=== PATIENT | male | born 1960 | race Two or more races ===

== ENCOUNTER 2020-01-08 12:37 | Emergency (ER) | payer OTHER ==
[2020-01-08 12:45] VITALS: BP 135/86; PULSE 69; TEMP 98.8; BMI 27.8
[2020-01-08] MEDS ORDERED: METHOCARBAMOL 500 MG TABLET PO ONE (12:46)
[2020-01-08] MEDS ORDERED: LIDOCAINE 5% TOPICAL PATCH TP ONE (12:46)
[2020-01-08] MEDS ORDERED: KETOROLAC TROMETHAMINE 30 MG/1 ML VIAL IM ONE (12:46)
--- NOTE | 2020-01-08 12:46 | PDOC ---
Rapid Medical Evaluation Chief Complaint: Back Pain Time Seen by Provider: 01/08/20 12:41 Medical Evaluation: Allergies Allergy/AdvReac Type Severity Reaction Status Date / Time No Known Allergies Allergy Verified 01/08/20 12:42 01/08/20 12:42 I have performed a brief in-person evaluation of this patient. The patient presents with a chief complaint of: 2 weeks left lower back pain radiating to left thigh. Denies any injury . pt was seen by orthopedics in [facility] for problem and prescribed naproxen but report has not been helping. Denies incontinence or saddle paresthesias Pertinent physical exam findings: A&o x 3 in mild distress. No clear TTP to back. report pain only with movement I have ordered the following: Toradol, lidoderm,robaxin The patient will proceed to the ED for further evaluation. Discharge Disposition - Diagnosis Lumbago of lumbar region with sciatica - Discharge Dispostion Condition at time of disposition: Stable - Referrals - Patient Instructions - Post Discharge Activity
[2020-01-08] MEDS ORDERED: KETOROLAC TROMETHAMINE 60 MG/2 ML VIAL IM ONE (13:14)
[2020-01-08] MEDS ORDERED: KETOROLAC TROMETHAMINE 60 MG/2 ML VIAL ONE (13:15)
--- NOTE | 2020-01-08 13:20 | PDOC ---
History of Present Illness - General Chief Complaint: Back Pain Stated Complaint: LOWER BACK/ HIP PAIN Time Seen by Provider: 01/08/20 12:41 - History of Present Illness Initial Comments: 01/08/20 13:15 59-year-old male with a past medical history of hypertension presents for evaluation of lower back pain with left posterior lateral leg radicular symptoms without systemic symptoms no loss of bowel bladder function or saddle pa resthesias Past History - Medical History Allergies/Adverse Reactions: Allergies Allergy/AdvReac Type Severity Reaction Status Date / Time No Known Allergies Allergy Verified 01/08/20 12:42 Home Medications: Ambulatory Orders Cyclobenzaprine HCl [Flexeril 10 mg] 10 mg PO HS PRN #10 tablet 01/08/20 Methylprednisolone [Medrol Dose Santi] 4 mg PO ASDIR #21 tablet 01/08/20 COPD: Yes HTN: Yes - Immunization History Immunization Up to Date: No - Psycho-Social/Smoking History Smoking History: Never smoked - Substance Abuse Hx (Audit-C & DAST Scrn) How often the patient has a drink containing alcohol: Never Score: In Men: 4 or > Positive; In Women: 3 or > Positive: 0 Screen Result (Pos requires Nsg. Audit-10AR): Negative In the last yr the pt used illegal drug/Rx for NonMed reason: No Score: Yes response is considered Positive: 0 Screen Result (Positive result requires Nsg. DAST-10): Negative Review of Systems - Review of Systems Constitutional: No: Fever : No: Incontinence Musculoskeletal: Yes: Back Pain *Physical Exam - Vital Signs Last Vital Signs Temp Pulse Resp BP Pulse Ox 98.8 F 69 20 135/86 100 01/08/20 12:42 01/08/20 12:42 01/08/20 12:42 01/08/20 12:42 01/08/20 12:42 - Physical Exam 01/08/20 13:16 Lumbar spine skin color temperature normal range of motion is slightly decreased. No midline tenderness. Moderate bilateral paralumbar musculature spasm and tenderness 5 out of 5 strength bilateral lower extremities without gross sensorimotor deficits thighs and calves are soft and nontender neurovascular intact Medical Decision Making - Medical Decision Making 01/08/20 13:16 One-time injection of Toradol in the emergency room for pain. Medrol Dosepak and Flexeril at home. Instructed patient on use of Tylenol in addition to Medrol Dosepak should he require additional analgesia. Follow-up with orthopedic spine at [facility] where the patient was seen in the past. Advised not to take any other anti-inflammatory medications. I have reviewed the pathophysiology with the patient. They are in agreement with the treatment plan all questions were answered to their satisfaction. Understanding for follow-up without fail was also conveyed to the patient. Again they are in agreement. Discharge - Discharge Information Problems reviewed: Yes Clinical Impression/Diagnosis: Lumbago of lumbar region with sciatica Condition: Stable - Admission No - Additional Discharge Information Prescriptions: Cyclobenzaprine HCl [Flexeril 10 mg] 10 mg PO HS PRN #10 tablet PRN Reason: Muscle Spasms Methylprednisolone [Medrol Dose Santi] 4 mg PO ASDIR #21 tablet - Follow up/Referral - Patient Discharge Instructions Additional Instructions: You were given a shot of a long-acting anti-inflammatory in the emergency room. No anti-inflammatories going forward until you are seen by the specialist. Please start the Medrol Dosepak tomorrow and take the medication as directed you may start the Flexeril this evening. It will help you sleep 1 tablet before bedtime it would also help with your muscle spasm. Return to the emergency room for worsening symptoms. And without fail follow-up with neurosurgery in 2 to 3 days for further evaluation and treatment options. - Post Discharge Activity
== END 2020-01-08 13:45 | disposition home or self-care (01) ==
LOC: JERFT 12:37
PROC: 3E0233Z Introduction of Anti-inflammatory into Muscle, Percutaneous Approach (ICD-10-PCS; principal; 2020-01-08)
DX: M54.41 Lumbago with sciatica, right side (principal)
CPT/HCPCS: 99284-25

== ENCOUNTER 2020-01-14 18:15 | Emergency (ER) | payer OTHER ==
--- NOTE | 2020-01-14 18:36 | PDOC ---
Rapid Medical Evaluation Time Seen by Provider: 01/14/20 18:33 Medical Evaluation: Allergies Allergy/AdvReac Type Severity Reaction Status Date / Time No Known Allergies Allergy Verified 01/08/20 12:42 01/14/20 18:34 I performed a brief in-person evaluation of this patient. Pt is a 59 y/o male with complaint of LLE pain that starts in his hip and radiates down to his knee. He states his lower leg "is sleeping". He denies injury. H/o HTN and COPD Pertinent physical exam findings: no reproducible tenderness to L hip or knee. Calf soft. Walking with antalgic gait I have ordered the following: lumbar xray Patient to proceed to ED for further evaluation. Discharge Disposition - Diagnosis Acute pain of left lower extremity - Referrals - Patient Instructions - Post Discharge Activity
[2020-01-14 18:39] VITALS: BP 131/89; PULSE 69; TEMP 98.8; BMI 27.8
--- OUTSIDE RECORDS SUMMARY | 2020-01-14 18:46 | XMS ---
:1960 Author Organization [facility] Support Name Relationship Address Phone [employer] Unavailable [address] [place] [address] MAURICIO PERDOMO FRIEND [address] [place] [address] Re-disclosure Warning The records that you are about to access may contain information from federally- assisted alcohol or drug abuse programs. If such information is present, then the following federally mandated warning applies: This information has been disclosed to you from records protected by federal confidentiality rules (42 CFR part 2). The federal rules prohibit you from making any further disclosure of this information unless further disclosure is expressly permitted by the written consent of the person to whom it pertains or as otherwise permitted by 42 CFR part 2. A general authorization for the release of medical or other information is NOT sufficient for this purpose. The Federal rules restrict any use of the information to criminally investigate or prosecute any alcohol or drug abuse patient.The records that you are about to access may contain highly sensitive health information, the redisclosure of which is protected by Article 27-F of the [facility] Public Health law. If you continue you may haveaccess to information: Regarding HIV / AIDS; Provided by facilities licensed or operated by the [facility] Office of Mental Health; or Provided by the [facility] Office for People With Developmental Disabilities. If such information is present, then the following [facility] mandated warning applies: This information has been disclosed to you from confidential records which are protected by state law. State law prohibits you from making any further disclosure of this information without the specific written consent of the person to whom it pertains, or as otherwise permitted by law. Any unauthorized further disclosure in violation of state law may result in a fine or alf sentence or both. A general authorization for the release of medical or other information is NOT sufficient authorization for further disclosure. Insurance Providers Payer name Policy type Policy ID Covered Covered constitution party's Policy P flex / Coverage constitution party ID relationship to [employer] type [employer] [id number] SP [id number] FIRST Results ID Date Data Source [id number] 12/21/2019 06:36:00 PM EDT [facility] Name Value Range Interpretation Code Description Data Bell rce(s) Supporting Document(s ) SARS-COV-2 [facility] QL OZIEL+PROBE This lab was ordered by KARISSA lucero nd reported by [employer]. ID Date Data Source [id number] 11/22/2019 06:31:00 PM EDT [facility] Name Value Range Interpretation Code Description Data Bell rce(s) Supporting Document(s ) COV2 [facility] This lab was ordered by KARISSA lucero nd reported by [employer]. ID Date Data Source [id number] 09/20/2019 12:00:00 AM EDT [facility] Name Value Range Interpretation Code Description Data Bell rce(s) Supporting Document(s ) 2019-nCoV [facility] XXX OZIEL+probe- Imp This lab [facility] by [facility] [employer] and reported by [employer] Procedure
--- NOTE | 2020-01-14 20:25 | PDOC ---
History of Present Illness - General Chief Complaint: Pain Stated Complaint: PAIN Time Seen by Provider: 01/14/20 18:33 - History of Present Illness Initial Comments: 01/14/20 20:23 59-year-old male with a past medical history of diabetes and hypertension presents for evaluation of lower back pain with posterior lateral left leg radicular symptoms down to the level of his knee without systemic symptoms loss of bowel or bladder function or saddle paresthesias. Seen in the emergency room last week given a Medrol Dosepak and Flexeril he has an appointment with a spine surgeon later this week however is unable to tolerate the pain is the and he is finished his home meds already. Past History - Medical History Allergies/Adverse Reactions: Allergies Allergy/AdvReac Type Severity Reaction Status Date / Time No Known Allergies Allergy Verified 01/14/20 18:34 Home Medications: Ambulatory Orders Cyclobenzaprine HCl [Flexeril 10 mg] 10 mg PO HS PRN #10 tablet 01/08/20 Methylprednisolone [Medrol Dose Santi] 4 mg PO ASDIR #21 tablet 01/08/20 Oxycodone HCl/Acetaminophen [Percocet 5-325 mg Tablet] 1 - 2 tab PO Q4H #20 tab let MDD 6 01/14/20 COPD: Yes HTN: Yes - Immunization History Immunization Up to Date: No - Psycho-Social/Smoking History Smoking History: Never smoked Have you smoked in the past 12 months: No Information on smoking cessation initiated: No - Substance Abuse Hx (Audit-C & DAST Scrn) How often the patient has a drink containing alcohol: Never Score: In Men: 4 or > Positive; In Women: 3 or > Positive: 0 Screen Result (Pos requires Nsg. Audit-10AR): Negative In the last yr the pt used illegal drug/Rx for NonMed reason: No Score: Yes response is considered Positive: 0 Screen Result (Positive result requires Nsg. DAST-10): Negative Review of Systems - Review of Systems Constitutional: No: Fever Musculoskeletal: Yes: Back Pain *Physical Exam - Vital Signs Last Vital Signs Temp Pulse Resp BP Pulse Ox 98.8 F 69 18 131/89 99 01/14/20 18:35 01/14/20 18:35 01/14/20 18:35 01/14/20 18:35 01/14/20 18:35 - Physical Exam 01/14/20 20:23 Lumbar spine skin color temperature normal range of motion is slightly decreased. No midline tenderness. Moderate bilateral paralumbar musculature spasm and tenderness 5 out of 5 strength bilateral lower extremities without gross sensorimotor deficits thighs and calves are soft and nontender neurovascular intact ED Treatment Course - Medications Given in the ED: ED Medications Discontinued Medications Generic Name Dose Route Start Last Admin Trade Name Asa PRN Reason Stop Dose Admin Oxycodone/Acetaminophen 2 combo 01/14/20 20:01 01/14/20 20:11 Percocet 5/325 - PO 01/14/20 20:02 2 combo ONCE ONE Administration Medical Decision Making - Medical Decision Making 01/14/20 20:24 Pain relieved with Percocet patient may continue Flexeril as directed he is finished a Medrol Dosepak. We will have him take a 5-day Percocet as needed I discussed the use of this medication with him he is in agreement with the plan he does have a subspecialist appointment coming up this week. I have reviewed the pathophysiology with the patient. They are in agreement with the treatment plan all questions were answered to their satisfaction. Understanding for follow-up without fail was also conveyed to the patient. Again they are in agreement. Discharge - Discharge Information Problems reviewed: Yes Clinical Impression/Diagnosis: Acute pain of left lower extremity, Lumbago of lumbar region with sciatica Condition: Improved Disposition: HOME - Admission No - Additional Discharge Information Prescriptions: Oxycodone HCl/Acetaminophen [Percocet 5-325 mg Tablet] 1 - 2 tab PO Q4H #20 tablet MDD 6 - Follow up/Referral Referrals: Thong Sullivan MD [Primary Care Provider] - - Patient Discharge Instructions Additional Instructions: Please take the Percocet as directed and only as needed. Return to the emergency room for worsening symptoms. Cannot take any Tylenol with the medicine I prescribed for you today. Return to the emergency room should you have further issues otherwise follow-up with your spine surgeon as scheduled. You may also continue the muscle relaxer as directed. No Motrin or other anti- inflammatories. - Post Discharge Activity
== END 2020-01-14 20:38 | disposition home or self-care (01) ==
LOC: JERFT 18:15
DX: M79.662 Pain in left lower leg (principal); M54.42 Lumbago with sciatica, left side
CPT/HCPCS: 72100-TC-FY; 99283-25